=== PATIENT | female | born 1970 | race Caucasian/White ===

== ENCOUNTER → 2016-05-09 | Outpatient (CLI) | payer MEDICAID, MEDICARE ==
[2015-04-28 14:13] VITALS: BP 118/72
[~2016-05-09] MED LIST: ALPR1TAB6 PO; ATOR20TA58 PO; ERGO500012 PO; OMEP20TA63 PO; PRAZ5CAP2 PO; QUET200T4 PO
--- NOTE | 2016-05-09 15:36 | EKG ---
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
[2016-05-09 15:53] LABS: BASO % 1 % (0-3); EOS % 3 % (0-3); HEMATOCRIT 36.8 % (36.0-47.0); HEMOGLOBIN 12.2 g/dL (12.0-15.5); LYMPH # 1.9 x10^3/uL (1.0-4.8); LYMPH % 21 % (24-48); MEAN CORPUSCULAR HEMOGLOBIN 30 pg (25-35); MEAN CORPUSCULAR HGB CONC 33 g/dL (31-37); MEAN CORPUSCULAR VOLUME 90 fL (79-100); MONO % 9 % (0-9); NEUT % 67 % (31-73); PLATELET COUNT 304 x10^3/uL (140-400); RED BLOOD COUNT 4.11 x10^6/uL (3.50-5.40); RED CELL DISTRIBUTION WIDTH 12.5 % (11.5-14.5)
[2016-05-09 16:10] LABS: ALBUMIN 4.1 g/dL (3.4-5.0); ALBUMIN/GLOBULIN RATIO 1.1 (1.0-1.7); CALCIUM 9.3 mg/dL (8.5-10.1); GFR 59.2; POTASSIUM 3.7 mmol/L (3.5-5.1); TOTAL BILIRUBIN 0.4 mg/dL (0.2-1.0)
[2016-05-09 17:54] LABS: BILIRUBIN,URINE NEGATIVE (NEG); GLUCOSE,URINE NEGATIVE (NEG); NITRITE,URINE NEGATIVE (NEG); PH,URINE 5.5; PROTEIN,URINE NEGATIVE (NEG-TRACE); UROBILINOGEN,URINE 0.2 mg/dL (0.2 mg/dL)
[2016-05-09 18:24] LABS: BACTERIA,URINE FEW /HPF (0-FEW); RBC,URINE 0 /HPF (0-2); SQUAMOUS EPITHELIAL CELL,UR MOD /LPF
--- NOTE | 2016-05-10 08:41 | RAD ---
Chest, 2 views, 05/09/2016: History: Preop evaluation for hysterectomy Comparison is made to a study from 08/25/2015. The heart size and pulmonary vascularity are normal. No pulmonary infiltrates are seen. There is no evidence of pleural fluid. Minimal spurring is present in the spine. IMPRESSION: No acute cardiopulmonary abnormality is detected.
== END | disposition home or self-care (01) ==
LOC: SURGPAT 14:33
PROVIDERS: ATTEND Obstetrics & Gynecology
DX: Z01.818 Encounter for other preprocedural examination (principal); R06.09 Other forms of dyspnea
CPT/HCPCS: 36415; 71020; 80053; 81001; 85027; 93005

== ENCOUNTER 2016-05-16 05:51 | Observation (INO) | payer MEDICARE, MEDICAID ==
[~2016-05-16] VITALS: Ht 170.2 cm; Wt 79.4 kg
[2016-05-16] VITALS (8 sets, daily range): BP systolic 104–121; BP diastolic 64–74
[2016-05-16 06:20] LABS: NEG OBC UR NEG; POS OBC UR POS
[2016-05-16] MEDS ORDERED: CEFOXITIN 1GM IVPB FOR OMNI 50 ML IV ONE (06:31)
[2016-05-16] MEDS ORDERED: IV RINGERS,LACTATED 1000ML 1,000 ML IV SCH ×2 (06:41→08:12)
[2016-05-16] MEDS ORDERED: LIDOCAINE 1% 1 ML SYRINGE. ID PRN ×2 (06:45→08:15)
[2016-05-16] MEDS ORDERED: MIDAZOLAM HCL 2 MG/2 ML VIAL. IV PRN (06:45)
[2016-05-16] MEDS ORDERED: FENTANYL PF 100 MCG/2 ML VIAL. IV PRN ×3 (06:45→08:15)
[2016-05-16] MEDS ORDERED: PROPOFOL 20 ML IV ONE (06:55)
[2016-05-16] MEDS ORDERED: ONDANSETRON PF 4 MG/2 ML VIAL. ONE (06:55)
[2016-05-16] MEDS ORDERED: FAMOTIDINE 20 MG/2 ML VIAL ONE (06:55)
[2016-05-16] MEDS ORDERED: LIDOCAINE 2% 100 MG/5 ML DISP.SYRIN. ONE (06:55)
[2016-05-16] MEDS ORDERED: DEXAMETHASONE SOD PHOS 20 MG/5 ML VIAL. ONE (06:55)
[2016-05-16] MEDS ORDERED: FENTANYL PF 100 MCG/2 ML VIAL. ONE ×2 (06:56→07:49)
[2016-05-16] MEDS ORDERED: ROCURONIUM 50 MG/5 ML VIAL. ONE (06:56)
[2016-05-16] MEDS ORDERED: MIDAZOLAM HCL 2 MG/2 ML VIAL. ONE (07:01)
[2016-05-16] MEDS ORDERED: BUPIVACAINE-EPI 0.25%-1:200000 MPF 30 ML VIAL. ONE (07:19)
[2016-05-16] MEDS ORDERED: METHYLENE BLUE 1% 1 ML VIAL. ONE (07:19)
[2016-05-16] MEDS ORDERED: ESTROGENS, CONJ VAGINAL CREAM 30GM TUBE. ONE (07:20)
[2016-05-16] MEDS ORDERED: ACETAMINOPHEN INTRAVENOUS 100 ML IV ONE (07:50)
[2016-05-16] MEDS ORDERED: EPHEDRINE PF IN SALINE 50 MG/5 ML DISP.SYRIN. IV ONE (08:02)
[2016-05-16] MEDS ORDERED: PROCHLORPERAZINE 10 MG/2 ML VIAL. IV PRN (08:15)
[2016-05-16] MEDS ORDERED: ONDANSETRON PF 4 MG/2 ML VIAL. IV PRN ×2 (08:15→09:00)
[2016-05-16] MEDS ORDERED: GLYCOPYRROLATE 1 MG/5 ML VIAL. ONE (08:46)
[2016-05-16] MEDS ORDERED: NEOSTIGMINE METHYLSULFATE 5 MG/5 ML SYRINGE. ONE (08:46)
[2016-05-16] MEDS ORDERED: SEVOFLURANE 61 TO 120 MINUTES. IH ONE (08:58)
[2016-05-16] MEDS ORDERED: 0.9 % SODIUM CHLORIDE 10 ML DISP.SYRIN. IV PRN (09:00)
[2016-05-16] MEDS ORDERED: MAG HYDROX/ALUMINUM HYDROX/SMC 30 ML ORAL.SUSP PO PRN (09:00)
[2016-05-16] MEDS ORDERED: CALCIUM CARBONATE 500 MG TAB.CHEW PO PRN (09:00)
[2016-05-16] MEDS ORDERED: ZOLPIDEM 5 MG TABLET. PO PRN (09:00)
[2016-05-16] MEDS ORDERED: MAGNESIUM HYDROXIDE 2,400 MG/30 ML ORAL.SUSP. PO PRN (09:00)
[2016-05-16] MEDS ORDERED: SIMETHICONE 80 MG TAB.CHEW PO PRN (09:00)
[2016-05-16] MEDS ORDERED: DIPHENHYDRAMINE HCL 25 MG CAPSULE PO PRN (09:00)
[2016-05-16] MEDS ORDERED: OXYCODONE/APAP 5/325 TABLET. PO PRN (09:00)
[2016-05-16] MEDS ORDERED: DIPHENHYDRAMINE 50 MG/ML VIAL IV PRN (09:00)
[2016-05-16] MEDS ORDERED: LACTULOSE 20 GM/30 ML SOLUTION. PO PRN (09:00)
[2016-05-16] MEDS ORDERED: NALOXONE 0.4 MG/ML VIAL. IV PRN (09:00)
[2016-05-16] MEDS ORDERED: ALPRAZOLAM 1 MG TABLET PO PRN (09:15)
--- NOTE | 2016-05-16 09:15 | PDOC ---
BRIEF OPERATIVE NOTE Date: May 16, 2016 Pre-Op Diagnosis menorrhagia, 2 periods per month Post-Op Diagnosis same Procedure Performed LAVH/BSO Surgeon Dr. Soraida Briscoe [facility] Machine Feeder Dr. Beatriz Quintanilla Anesthesiologist see anesthesia notes Anesthesia Type: General Blood Loss 30cc IV Fluid see anesthesia records Urine Output 150cc clear via rice Specimens Obtained cervix, uterus, bilateral tubes and ovaries Findings mild left sided colon adhesions, small 2cm clear left ovarian cyst, mildly enlarged RV uterus, normal right tube and ovary Complications none Additional Remarks [id number] SORAIDA BRISCOE MD May 16, 2016 09:15
[2016-05-16] MEDS: FENTANYL PF 100 MCG/2 ML VIAL. IV PRN ×4 (09:20→10:19)
[2016-05-16] MEDS: MORPHINE SULFATE 2 MG/ML DISP.SYRIN. IV PRN ×4 (09:50→23:24)
[2016-05-16] MEDS: KETOROLAC TROMETHAMINE 30 MG/ML SYRINGE. IV PRN (10:53)
--- NOTE | 2016-05-16 15:25 | OP ---
DATE OF SURGERY: 05/16/2016 PREOPERATIVE DIAGNOSES: Menorrhagia with 2 cycles per month and dysmenorrhea. POSTOPERATIVE DIAGNOSES: Menorrhagia with 2 cycles per month and dysmenorrhea. PROCEDURES: Laparoscopic-assisted vaginal hysterectomy, bilateral salpingo-oophorectomy. SURGEON: Paulino Gutierrez MD. and Beatriz Quintanilla MD. ANESTHESIA: General. ESTIMATED BLOOD LOSS: 30 mL. URINE OUTPUT: 150 mL clear via Nicholson catheter. SPECIMEN REMOVED: Cervix, uterus, bilateral tubes and ovaries. FINDINGS: A small 2 cm functional clear cyst on the left. Normal right tube and ovary, mildly enlarged retroverted uterus, some mild adhesions of the descending colon to the left side wall. COMPLICATIONS: None. DESCRIPTION OF PROCEDURE: This patient was taken to the operating room where general anesthesia was placed. The patient was placed in dorsal lithotomy position in Ranjit stirrups. The patient's abdomen and vagina were prepped and draped in the normal sterile fashion and a Nicholson catheter had previously been inserted under sterile technique. At this point, a bivalve speculum was placed in the patient's vagina. A single tooth tenaculum was used to grasp the anterior lip of the cervix. 10 mL of 0.25% Marcaine with epinephrine was used to circumferentially inject around the cervix. This was for both hemodissection and hemostatic purposes later. At this point, the Valtchev uterine manipulator was placed through the endocervical os, locked on the single tooth tenaculum and the bivalve speculum was then removed. Top gloves were discarded and changed. Attention was then turned to the abdomen where a small infraumbilical skin incision was made with a scalpel over an existing scar from her previous laparoscopic cholecystectomy. A curved Barbara was used to dissect through the subcuticular layer to the fascia. The 5 mm Visiport was used to directly enter the abdominal cavity. Opening patient pressure was 4-5 mmHg. Carbon dioxide gas was used to then appropriately insufflate the abdominal cavity to maintain a pressure of 15 mmHg. The patient was placed in Trendelenburg position with the above findings. Right and left lower quadrant 5 mm atraumatic disposable Ethicon ports were placed under direct visualization without difficulty. Ligasure Advance was used to cauterize and cut the left round ligament. It was cauterized and cut in a stepwise fashion going down and making the bladder flap anteriorly sharply and bluntly, elevating the left tube and ovary. There was a small may be 1-2 cm clear straw-colored cyst that burst when we elevated the ovary on this side. The ureter was found low coursing beneath where we are going, staying high right on the ovary, but nowhere near the colon adhesions crossing the IP ligament, cauterizing and cutting it with the LigaSure Advance, going down and getting the uterines on that side making sure the bladder was down. This was done exactly the same on the right side first starting with the round ligament going down and further meeting that bladder flap anteriorly, elevating the right tube and ovary, again finding the ureter coursing low, staying high on the infundibulopelvic ligament, cauterizing and cutting it all with the LigaSure Advance, going down and getting the uterines on this side as well. The uterus did began blanching, the cervix was pushed in with the Valtchev, uterus was lifted up, made sure that the bladder was down and going down and staying vertical on both sides after getting the uterine inside that pedicle and going through the cardinal and broad ligaments down to the level of the uterosacrals, cauterizing and cutting with the LigaSure Advance the entire way down hugging the cervix and staying vertical to the cervix. Once this was done, all instruments were removed from the abdomen and attention was turned vaginally where the single tooth and Valtchevs were removed. A weighted speculum was placed in the patient's vagina. Thyroid Bianca clamps were placed on the anterior and posterior lips of the cervix respectively. A scalpel was used to make a circumferential incision in the cervix. An open Ray-Jean 4 x 4 was used to gently push up the anterior bladder peritoneum. The cervix was elevated and the posterior cul-de-sac was sharply entered with Zamarripa scissors. A #0 Vicryl stitch was used to secure the posterior peritoneum to the vaginal cuff here and it was tagged with a curved Barbara clamp and the needle was cut and passed off. The short weighted speculum was removed and replaced with the long weighted Anay speculum in the posterior cul-de-sac. At this point, curved Ivet clamps x 2 were placed on the patient's left uterosacral ligament. They were doubly clamped with curved Ivet, cut with curved Zamarripa scissors and suture ligated x 2 with #0 Vicryl. The second one was taken through the vaginal cuff securing the uterosacral ligaments to the vaginal cuff and cutting the needle off and tagging it with a straight Barbara clamp. This was done exactly the same on the patient starting on the left now going the right side. Curved Heaneys were used to double clamp the right uterosacral ligament and then cutting with Zamarripa scissors and suture ligating x 2 with #0 Vicryl, again taking the second one through the vaginal cuff and tagging it with a straight Barbara clamp and cutting and passing the needle off. At this point, the right angle clamp was taken through around the remaining pedicle on both sides and the vaginal LigaSure Max was used to cauterize this once the pedicle was delineated on both sides. The cervix, uterus, bilateral tubes and ovaries were delivered in total and passed off for permanent pathology. The anterior sponge was taken out of the cul-de-sac. A long Allis was used to grasp the anterior bladder peritoneum and a sponge stick was used to examine the pedicles. Once it was hemostatic, the long weighted speculum was removed and replaced with the short weighted and a full length 2-0 Vicryl was taken through the anterior bladder peritoneum, left uterosacral ligament, posterior peritoneum and right uterosacral ligament, thus closing the peritoneum in a pursestring like fashion. Once this was done, the uterosacral tags on both sides were clipped. All that remained was the posterior tag and a full length 2-0 Vicryl was taken through the anterior vaginal cuff and it was closed in a running locked fashion and tied to that posterior tag. Once this was done, a sponge stick was used to examine the cuff and it was hemostatic and intact. So, all instruments were removed and all gloves were discarded and changed. A second look from above was began. There was no bleeding. It was copiously irrigated. Tisseel was placed over the cuff. The right and left lower quadrant ports were removed under direct visualization. These two were hemostatic. Gas was released from the umbilical port. It was removed also. All three port sites were closed with 4-0 nylon at the level of the skin and injected with another total of 10 mL of 0.25% Marcaine with epinephrine. PAULINO GUTIERREZ MD DR: MARISELA/krzysztof JOB#: [id number] / [id number]
[2016-05-16] MEDS: HYDROCODONE/APAP 5/325MG TABLET. PO PRN ×2 (17:51→21:12)
[2016-05-16] MEDS ORDERED: ATORVASTATIN CALCIUM 20 MG TABLET PO SCH (21:00)
[2016-05-16] MEDS ORDERED: PRAZOSIN 1 MG CAPSULE. PO SCH (21:00)
[2016-05-16] MEDS: ALPRAZOLAM 0.5 MG TABLET PO PRN (21:04)
[2016-05-17] MEDS: HYDROCODONE/APAP 5/325MG TABLET. PO PRN ×3 (00:41→08:03)
[2016-05-17 01:10] VITALS: BP 114/68
[2016-05-17] MEDS: KETOROLAC TROMETHAMINE 30 MG/ML SYRINGE. IV PRN (04:09)
[2016-05-17] MEDS: ALPRAZOLAM 0.5 MG TABLET PO PRN (04:16)
[2016-05-17 04:30] VITALS: BP 134/70
[2016-05-17 06:21] LABS: GFR 59.2; POTASSIUM 3.7 mmol/L (3.5-5.1)
[2016-05-17] MEDS ORDERED: PANTOPRAZOLE 40 MG TABLET. PO SCH (07:30)
--- NOTE | 2016-05-17 08:42 | PDOC ---
SURGICAL PROGRESS NOTE Subjective Doing well without complaints. Tolerating regular diet, ambulating well, voiding without catheter. Wants to go home. Rare spotting with wiping in restroom Vital Signs Vital Signs Date Time Temp Pulse Resp B/P Pulse Ox O2 Delivery O2 Flow Rate FiO2 05/17/16 04:30 98.2 69 24 134/70 96 Room Air 98.2 05/17/16 00:41 8.0 I&O Intake and Output 05/17/16 07:00 Intake Total 2080 ml Output Total 955 ml Balance 1125 ml Intake Oral 330 ml IV Total 1750 ml Output Urine Total 925 ml Estimated Blood Loss 30 ml # Voids 1 PATIENT HAS A SEPULVEDA: No General: Alert, Oriented X3, Cooperative, No acute distress HEENT: Atraumatic Heart: Regular rate Abdomen: Soft, No tenderness, Other (all port sites c/d/i) Extremities: No clubbing, No cyanosis, No edema Skin: No rashes, No breakdown Neuro: Normal speech Psych/Mental Status: Mental status NL, Mood NL Labs Laboratory Tests Test 05/16/16 06:10 05/17/16 04:35 Urine Test Negative (NEG) Hematocrit 31.2% (36.0-47.0) Sodium Level 139mmol/L (136-145) Potassium Level 3.7mmol/L (3.5-5.1) Chloride Level 102mmol/L (98-107) Carbon Dioxide Level 24mmol/L (21-32) Anion Gap 13 (6-14) Blood Urea Nitrogen 14mg/dL (7-20) Creatinine 1.0mg/dL (0.6-1.0) Estimated GFR (Cockcroft-Gault) 59.2 Glucose Level 139mg/dL (70-99) Calcium Level 9.0mg/dL (8.5-10.1) Laboratory Tests Test 05/17/16 04:35 Hematocrit 31.2% (36.0-47.0) Sodium Level 139mmol/L (136-145) Potassium Level 3.7mmol/L (3.5-5.1) Chloride Level 102mmol/L (98-107) Carbon Dioxide Level 24mmol/L (21-32) Anion Gap 13 (6-14) Blood Urea Nitrogen 14mg/dL (7-20) Creatinine 1.0mg/dL (0.6-1.0) Estimated GFR (Cockcroft-Gault) 59.2 Glucose Level 139mg/dL (70-99) Calcium Level 9.0mg/dL (8.5-10.1) I have reviewed the following labs, vitals, nursing Problem List Problems Medical Problems: (1) Menorrhagia Status: Acute Assessment/Plan menorrhagia, polymenorrhea POD#1 s/p LAVH/BSO routine po care d/c to home NPV x 6 weeks light/limited activity x [address] while on narcotic pain pills [place]-- written keep scheduled one week postop call or return sooner if any questions or concerns not limited to but including pain unrelieved with pain pills, increased or unexplained vaginal bleeding or T> 100.4 Problems: PAULINO BRISCOE MD May 17, 2016 08:42
--- NOTE | 2016-05-17 08:45 | PDOC3 ---
Discharge Summary Visit Information Date of Admission: May 16, 2016 Date of Discharge: May 17, 2016 Final Diagnosis Problems Medical Problems: (1) Menorrhagia Status: Acute Brief Hospital Course Allergies Allergies Coded Allergies Type Severity Reaction Last Updated Verified codeine Adverse Reaction Intermediate Nausea and Vomiting 05/16/16 Yes Vital Signs Vital Signs Date Time Temp Pulse Resp B/P Pulse Ox O2 Delivery O2 Flow Rate FiO2 05/17/16 04:30 98.2 69 24 134/70 96 Room Air 98.2 05/17/16 00:41 8.0 Lab Results Laboratory Tests Test 05/16/16 06:10 05/17/16 04:35 Urine Test Negative (NEG) Hematocrit 31.2% (36.0-47.0) Sodium Level 139mmol/L (136-145) Potassium Level 3.7mmol/L (3.5-5.1) Chloride Level 102mmol/L (98-107) Carbon Dioxide Level 24mmol/L (21-32) Anion Gap 13 (6-14) Blood Urea Nitrogen 14mg/dL (7-20) Creatinine 1.0mg/dL (0.6-1.0) Estimated GFR (Cockcroft-Gault) 59.2 Glucose Level 139mg/dL (70-99) Calcium Level 9.0mg/dL (8.5-10.1) Laboratory Tests Test 05/17/16 04:35 Hematocrit 31.2% (36.0-47.0) Sodium Level 139mmol/L (136-145) Potassium Level 3.7mmol/L (3.5-5.1) Chloride Level 102mmol/L (98-107) Carbon Dioxide Level 24mmol/L (21-32) Anion Gap 13 (6-14) Blood Urea Nitrogen 14mg/dL (7-20) Creatinine 1.0mg/dL (0.6-1.0) Estimated GFR (Cockcroft-Gault) 59.2 Glucose Level 139mg/dL (70-99) Calcium Level 9.0mg/dL (8.5-10.1) Brief Hospital Course Ms. Hall is a 46 old [sex] who presented with [ ] Discharge Information Condition at Discharge: Improved Follow Up: Weeks Disposition/Orders: D/C to Home Scheduled Atorvastatin Calcium (Atorvastatin Calcium) 20 MG PO HS (Reported) Ergocalciferol (Vitamin D2) (Vitamin D2) 50,000 UNIT PO WEEKLY (Reported) Omeprazole Magnesium (Prilosec Otc) 20 MG PO DAILY (Reported) Prazosin Hcl (Prazosin Hcl) 5 MG PO HS (Reported) Quetiapine Fumarate (Seroquel) 200 MG PO HS (Reported) Scheduled PRN Alprazolam (Alprazolam) 1 MG PO PRN Q6HRS PRN PRN ANXIETY / AGITATION (Reported ) Patient Instructions Patient Instructions POD#1 s/p LAVH/BSO routine po care d/c to home NPV x 6 weeks light/limited activity x [address] while on narcotic pain pills [place]-- written keep scheduled one week postop call or return sooner if any questions or concerns not limited to but including pain unrelieved with pain pills, increased or unexplained vaginal bleeding or T> 100.4 PAULINO BRISCOE MD May 17, 2016 08:45
[2016-05-17 08:53] VITALS: BP 128/72
--- NOTE | 2016-05-18 14:09 | PATHOLOGY ---
PATHOLOGY REPORT * * * * * * * * FINAL DIAGNOSIS: Uterus and attached bilateral fallopian tubes and ovaries, laparoscopic-assisted vaginal hysterectomy with bilateral salpingo-oophorectomy: - Adenomyosis, uterine corpus, with mild myometrial hypertrophy (160 grams). - Nabothian cyst, uterine cervix, with overlying squamous metaplasia. - Secretory endometrium. - Bilateral fallopian tubes showing no diagnostic abnormalities. - Cystic follicles, bilateral ovaries, showing focal hemorrhage and regressive changes. - Focally hemorrhagic corpora lutea of ovaries. COMMENT: There is no evidence of malignancy. (JPM:mgr; d/t: 05/18/16) REPORT ELECTRONICALLY SIGNED BY: Mauro Pena M.D. DATE/TIME: 05/18/2016 14:08 * * * * * * * * GROSS PATHOLOGY: The specimen is received in formalin labeled "Sharmila Hall, uterus, cervix, bilateral ovaries and tubes". Received is a 160 g, 10.1 x 7.3 x 5.5 cm uterus with attached cervix and attached adnexa, weighing 12 and 13 g, left and right, respectively. The uterine serosa is pink-bain, smooth and glistening in appearance. The 1.1 cm cervical os is surrounded by pale bain, smooth to slightly disrupted ectocervical mucosa. The uterus is oriented using the peritoneal reflection and the anterior paracervical margin is inked black. The uterus is opened laterally to reveal a pale bain, corrugated endocervical canal measuring 3.0 cm in length. The endometrial cavity is triangular measuring 5.3 cm in length by 2.5 cm in width. The endometrium is pale bain, glistening in appearance and measures 0.1 cm in thickness. Serial sectioning reveals a bain-pink, trabeculated myometrium measuring up to 2.8 cm in thickness with no grossly distinct nodules or lesions. The 12 g left adnexa consists of a fimbriated fallopian tube measuring 4.9 cm in length by 0.7 cm in diameter attached to a 3.7 x 2.7 x 1.5 cm ovary. The fallopian tube appears grossly unremarkable and sectioning through the ovary reveals corpora lutea ranging in size from 0.3 to 1.8 cm and corpora albicantia ranging in size from 0.1 to 0.2 cm. There are also several cystic structures present ranging in size from 0.2 to 0.5 cm filled with blood-tinged fluid. The 13 g right adnexa consists of a fimbriated fallopian tube measuring 5.5 cm in length by up to 0.7 cm in diameter attached to a 2.8 x 2.8 x 2.1 cm ovary. The fallopian tube appears grossly unremarkable and sectioning through the ovary reveals corpora lutea ranging in size from 0.5 to 1.9 cm and corpora albicantia ranging in size from 0.1 to 0.2 cm. There is also a single unilocular cystic structure present measuring 0.4 cm filled with blood-tinged fluid. The specimen is submitted representatively as follows: A1 12:00 cervix A2 6:00 cervix A3 anterior endomyometrium A4 posterior endomyometrium A5 left adnexa A6 right adnexa. (CAA; 05/17/2016) INITIAL CPT CODE(S): A; 49835 Professional services performed [place] [address] Technical services performed by [facility] at [address] [place] [address]. SPECIMEN(S) RECEIVED: A.Uterus, cervix, bilateral ovaries and tubes CLINICAL HISTORY: Fibroids, dysmenorrhea, menorrhagia, dyspareunia PATIENT: FANNYSHARMILA /AGE: 1 1970 (Age: 46) PATIENT #: [id number] ALT CASE #: SPECIMEN COLLECTION DATE: 05/16/2016 SPECIMEN RECEIVED DATE: 05/16/2016 [facility] [place] [address] - PHONE: [phone] * * * END OF REPORT * * *
== END 2016-05-17 10:54 | disposition home or self-care (01) ==
LOC: SURG 05:51 → 3 NORTH 09:15
PROVIDERS: ADMIT Obstetrics & Gynecology; ATTEND Obstetrics & Gynecology
DX: N92.0 Excessive and frequent menstruation with regular cycle (principal); N94.6 Dysmenorrhea, unspecified; K66.0 Peritoneal adhesions (postprocedural) (postinfection); N83.202 Unspecified ovarian cyst, left side; N85.4 Malposition of uterus
CPT/HCPCS: 36415; 58552; 80048; 81025; 85014; 86850; 86900; 86901; 96374; 96375; 96376; C1769; G0378; G0379; J0131; J0694; J1100; J1885; J2250; J2270; J2405; J2704; J2710; J3010; J3490; J7030; J7120; S0028; 88307; Q9968

== ENCOUNTER → 2018-01-05 | Outpatient (CLI) | payer MEDICARE, MEDICAID ==
[~2018-01-05] MED LIST changes: -ERGO500012 PO; +ERGO500027 PO; +ESTR2TAB PO; +IOHEXOL 180 MG/ML 10 ML VIAL. ONE; +LIDOCAINE 2% PF 2ML VIAL. ONE; +OMEG1CAP66 PO; +PARO20TA3 PO; +ZOLP5TAB5 PO; +methylPREDNISolone ACETATE 40 MG/ML VIAL. ONE; +methylPREDNISolone ACETATE 80 MG/ML VIAL. ONE
--- NOTE | 2018-01-06 01:45 | PAIN ---
DATE OF SERVICE: 01/05/2018 INITIAL CONSULTATION FOR PAIN CLINIC CHIEF COMPLAINT: Neck and left upper extremity pain. HISTORY OF PRESENT ILLNESS: This is a 47-year-old female who presents with history of pain for about 1 year, not a result of any specific injury or action that she is aware of, but increasing in the base of the neck and left upper extremity, left arm, mostly posterior aspect of the triceps, biceps anteriorly as well as the anterior forearm into the hand and fingers, especially with numbness and tingling in the thumb and the first finger. The patient reports this has been getting worse with time. Again, no specific injury or action that she is aware of. Describes this as constant, throbbing, shooting, tingling with numbness in the hand, radiating, aching and cramping in sensation as well. The patient reports she has been dropping items with the left arm and feels that it fatigues very easily and is more tired than the right. The patient reports she is left handed. The patient reports it awakens her from sleep frequently all night. She is having difficulty sleeping, especially on the left side. She reports it does not affect her bowel or bladder control, but can affect her ability to walk and she feels unstable and unbalanced with her left arm with this aching and tingling and causes her to be off balance. The patient has tried naproxen as well as a steroid pack, which did not help significantly to decrease the pain. Reports her disability range 0-10, 10 being the worst, is a 7 with family and home responsibilities, recreation, social activity, occupation and sexual behavior; 9 with self-care and 9 with life support activities. The patient did have an MRI scan of the cervical spine showing C5-C6 disk space with mild generalized disk bulge, superimposed with left paracentral disk osteophyte complex, C6-C7 shows generalized disk bulge as well, mild with left paracentral focal disk protrusion resulting in mild left-sided central spinal canal stenosis without evidence of cord impingement. The patient has not tried any current physical therapies, any other stretching and strengthening exercises or other modalities at this time. PAST MEDICAL HISTORY: Significant for hypertension, dizziness. PREVIOUS SURGERY: Include cholecystectomy, hysterectomy and left bunionectomy. CURRENT MEDICATIONS: Include atorvastatin, prazosin, alprazolam, Seroquel, paroxetine, zolpidem, estradiol and fish oil. ALLERGIES: THE PATIENT IS ALLERGIC TO CODEINE. FAMILY HISTORY: Significant for heart disease. SOCIAL HISTORY: The patient does not drink alcohol, does not smoke. Does not use any illegal, illicit or recreational drugs. The patient reports she is single. Lives locally in [place], [place], is currently on disability. REVIEW OF SYSTEMS: The patient's review of systems is positive for those items mentioned in history of present illness. All systems reviewed and otherwise negative. It is complete, full and well documented on the patient's chart. PHYSICAL EXAMINATION: VITAL SIGNS: Today, the patient's blood pressure is 124/79, pulse 87, respirations 18, temperature 97.3 degrees Fahrenheit. Height is 5 feet 7 inches, weight is 171 pounds. GENERAL: The patient is awake, alert, oriented, appropriate, very pleasant demeanor. HEENT: Head is normocephalic, atraumatic. Extraocular movements are intact and symmetrical. Oral cavity, mucous membranes are moist and pink. Dentition is intact. NECK: Shows anterior throat supple without palpable lymphadenopathy noted. Swallow reflex symmetrical. CHEST: Shows normal with inspection. Breath sounds clear to auscultation bilaterally. HEART: Shows S1, S2 clear. No murmurs auscultated. ABDOMEN: Soft, nontender, nondistended. No palpable organomegaly is noted. No rebound or guarding demonstrated. BACK: Shows spine grossly in the midline. Normal appearing thoracic kyphosis and lumbar lordotic curvature. Cervical lordotic curvature is normal in curvature as well. Cervical paraspinous muscle shows symmetrical on inspection. On palpation shows some moderate tenderness, but only diffusely bilaterally without radiation. Good rotational motion is maintained in the neck with full rotation past 45 degrees right and left as well as full extension, full forward flexion without significant pain reported. There is moderate tenderness in the inferior aspect of the cervical paraspinous musculature on the left into the superior medial and lateral trapezius, but without trigger points, without radiation. Right side is nontender. The patient's upper extremities show deep tendon reflexes at 2+ in the biceps and triceps tendons. Motor exam is strong, 4/5 left churn operator strength and 5/5 on the right. Peripheral pulses are 2+ radial distribution. No peripheral edema is noted bilaterally. Shoulder shrug is strong and intact with some moderate pain with resistance on the left side without loss of strength. Abduction of the shoulder to 90 degrees is the same on the left with no loss of strength, but significant tenderness with resistance on the left side only, but without radiation to the hand. SKIN: Warm and dry, good turgor. No edema. No rashes or sores. IMPRESSION: 1. This is a 47-year-old female with about 1-year history of increasing pain at the base of the neck radiating to left upper extremity in radicular fashion. 2. MRI scan of cervical spine as noted. 3. Hypertension. PLAN: Options were discussed with the patient including conservative medical management, physical therapy, interventional techniques and she would like to pursue with interventional techniques. We discussed cervical epidural steroid injection using description as well as anatomical models to describe the procedure. Risks were then discussed including, but not limited to, bleeding, infection, possibility of epidural hematoma and subsequent neurological compromise, dural puncture, headaches, spinal cord and/or nerve damage, side effects of steroid medication and poor results regarding pain control. The patient understands and wished to proceed. The patient will return to clinic in approximately 2 weeks for followup., was counseled as to her return appointment, activity level and side effects to be aware of. DIAGNOSES: Cervical radiculopathy with cervical degenerative disk disease and cervical spinal stenosis and cervical herniated disk. PROCEDURE: Cervical epidural steroid injection, translaminar approach at C6-C7 level using C-arm fluoroscopic guidance under sterile prep and drape using local anesthetic. MEDICATION INJECTED: A total of 120 mg Depo-Medrol plus 5 mL of preservative-free normal saline and 2 mL of Isovue for contrast. CONDITION AT DISCHARGE: Stable. The patient tolerated procedure well, had no complications. TONY TINSLEY MD DR: MELVA/krzysztof JOB#: [id number] / [id number] Sofía Salmon MD
== END ==
LOC: PNCL 09:36
PROVIDERS: ATTEND Anesthesiology
DX: M50.123 Cervical disc disorder at C6-C7 level with radiculopathy (principal); M48.02 Spinal stenosis, cervical region; I10 Essential (primary) hypertension; Z98.890 Other specified postprocedural states; Z90.49 Acquired absence of other specified parts of digestive tract; Z90.710 Acquired absence of both cervix and uterus; Z88.5 Allergy status to narcotic agent
CPT/HCPCS: 62321; J1030; J1040; J2001; Q9965

== ENCOUNTER 2018-01-30 14:34 | Emergency (ER) | payer MEDICARE, MEDICAID ==
[~2018-01-30] VITALS: Ht 170.2 cm; Wt 77.1 kg
[~2018-01-30 14:34] MED LIST changes: -IOHEXOL 180 MG/ML 10 ML VIAL. ONE; -LIDOCAINE 2% PF 2ML VIAL. ONE; -methylPREDNISolone ACETATE 40 MG/ML VIAL. ONE; -methylPREDNISolone ACETATE 80 MG/ML VIAL. ONE
[2018-01-30 14:40] VITALS: BP 170/75
[2018-01-30] MEDS ORDERED: GABA-586 PO (15:10)
[2018-01-30] MEDS ORDERED: CYCL10TA2 PO (15:10)
[2018-01-30] MEDS ORDERED: DICL50TA4 PO (15:10)
--- NOTE | 2018-01-30 15:10 | PHYS DOC ---
Past Medical History Past Medical History: Anxiety, Depression, High Cholesterol, Hypertension, Other Additional Past Medical Histor: PTSD Past Surgical History: Cholecystectomy, Other Additional Past Surgical Histo: BUNION Alcohol Use: Occasionally Drug Use: None Adult General Chief Complaint Chief Complaint: Neck Pain HPI HPI Patient is a 47 year old female with history of depression, anxiety, hypertension, high cholesterol, who presents today with chronic 10 out of 10 neck pain radiating to bilateral upper extremities. Patient denies any known injury. Patient states she follows up with her own PCP as well as the pain clinic. She states she had injections in her neck 3 weeks ago which worsened the pain. Patient states she was referred to a neurologist but she has not had an appointment yet. Patient states she has history of several herniated disks to her cervical spine. Review of Systems Review of Systems Constitutional: Denies fever or chills [] Musculoskeletal: Reports chronic neck pain radiating to bilateral upper extremities. Integument: Denies rash or skin lesions [] Neurologic: Denies headache, focal weakness or sensory changes [] All other systems were reviewed and found to be within normal limits, except as documented in this note. Allergies Allergies Allergies Coded Allergies Type Severity Reaction Last Updated Verified codeine Adverse Reaction Intermediate Nausea and Vomiting 05/16/16 Yes Physical Exam Physical Exam Constitutional: Well developed, well nourished, no acute distress, non-toxic appearance. [] Neck: Normal range of motion, no tenderness, supple, no stridor. [] Skin: Warm, dry, no erythema, no rash. [] Back: No tenderness, no CVA tenderness. [] Extremities: No tenderness, no cyanosis, no clubbing, ROM intact, no edema. [] Neurologic: Alert and oriented X 3, normal motor function, normal sensory function, no focal deficits noted. [] Psychologic: Affect normal, judgement normal, mood normal. [] Current Patient Data Vital Signs Vital Signs Date Time Temp Pulse Resp B/P (MAP) Pulse Ox O2 Delivery O2 Flow Rate FiO2 01/30/18 14:40 97.9 70 14 170/75 (106) 96 Room Air 97.9 EKG EKG [] Radiology/Procedures Radiology/Procedures [] Course & Med Decision Making Course & Med Decision Making Pertinent Labs and Imaging studies reviewed. (See chart for details) This is a 47-year-old female patient presenting to the ED today with chronic neck pain with numbness and tingling to bilateral upper extremities. Patient follows up with the pain clinic as well as PCP. Patient was discharged with cyclobenzaprine, diclofenac, and gabapentin. Ice elevation encouraged. Given referrals to neurosurgery as well as neurologist. Patient states she does not want any steroids. She states she's had them and they make her gain weight Dragon Disclaimer Dragon Disclaimer This electronic medical record was generated, in whole or in part, using a voice recognition dictation system. Departure Departure Impression: Primary Impression: Chronic neck pain Disposition: HOME, SELF-CARE Condition: STABLE Referrals: NO PCP (PCP) MIGUEL WILDER MD Follow-up in 1-2 weeks OSMIN DRIVER MD Follow-up as soon as possible TONY TINSLEY MD follow up in 1-2 weeks Sofía COLLINS MD follow up as soon as possible Patient Instructions: Musculoskeletal Pain Additional Instructions: You were seen for chronic neck pain. Please follow-up with the provided neurologist, neurosurgeon, primary care doctor as well as the pain clinic. Take the prescribed medications as ordered. Scripts Gabapentin (GABAPENTIN) 300 Mg Capsule 300 MG PO TID, #30 CAP Prov: ANA ROSA WASHINGTON APRN 01/30/18 Cyclobenzaprine Hcl (CYCLOBENZAPRINE HCL) 10 Mg Tablet 1 TAB PO TID, #30 TAB Prov: ANA ROSA WASHINGTON APRN 01/30/18 Diclofenac Sodium (DICLOFENAC SODIUM) 50 Mg Tablet. 1 TAB PO BID, #30 TAB 0 Refills Prov: ANA ROSA WASHINGTON APRN 01/30/18 ANA ROSA WASHINGTON APRN Jan 30, 2018 15:10
== END 2018-01-30 15:28 | disposition home or self-care (01) ==
LOC: ER 14:34
DX: G89.29 Other chronic pain (principal); M54.2 Cervicalgia; M79.602 Pain in left arm; M79.601 Pain in right arm; E78.00 Pure hypercholesterolemia, unspecified; I10 Essential (primary) hypertension; Z88.5 Allergy status to narcotic agent
CPT/HCPCS: 99283

== ENCOUNTER → 2018-04-11 | Outpatient (CLI) | payer MEDICARE, MEDICAID ==
[~2018-04-11] MED LIST changes: +CYCL10TA2 PO; +DEXL60CA2 PO; +DICL50TA4 PO; +GABA300C18 PO
--- NOTE | 2018-04-11 14:05 | EKG ---
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
[2018-04-11 14:48] LABS: BASO % 0 % (0-3); EOS # 0.1 x10^3/uL (0.0-0.7); EOS % 1 % (0-3); HEMATOCRIT 36.9 % (36.0-47.0); HEMOGLOBIN 12.6 g/dL (12.0-15.5); LYMPH # 1.7 x10^3/uL (1.0-4.8); LYMPH % 27 % (24-48); MEAN CORPUSCULAR HEMOGLOBIN 30 pg (25-35); MEAN CORPUSCULAR HGB CONC 34 g/dL (31-37); MEAN CORPUSCULAR VOLUME 88 fL (79-100); MONO # 0.4 x10^3/uL (0.0-1.1); MONO % 6 % (0-9); NEUT # 4.2 x10^3uL (1.8-7.7); NEUT % 66 % (31-73); PLATELET COUNT 332 x10^3/uL (140-400); RED BLOOD COUNT 4.18 x10^6/uL (3.50-5.40); WHITE BLOOD COUNT 6.4 x10^3/uL (4.0-11.0)
--- NOTE | 2018-04-11 14:48 | RAD ---
EXAM: Chest, 2 views. HISTORY: Preoperative evaluation. Pain. COMPARISON: None. FINDINGS: 2 views of chest are obtained. There is no infiltrate, pleural effusion or pneumothorax. The heart is normal in size. IMPRESSION: No acute pulmonary finding. Electronically signed by: Tressa Orta MD (04/11/2018 2:43 PM) [place] [id number]
[2018-04-11 15:11] LABS: PROTHROMBIN TIME PATIENT 13.8 SEC (11.7-14.0)
[2018-04-11 15:14] LABS: ALBUMIN 3.7 g/dL (3.4-5.0); ALBUMIN/GLOBULIN RATIO 0.9 (1.0-1.7); CALCIUM 9.6 mg/dL (8.5-10.1); GFR 58.7; POTASSIUM 3.4 mmol/L (3.5-5.1); TOTAL BILIRUBIN 0.4 mg/dL (0.2-1.0); TOTAL PROTEIN 7.9 g/dL (6.4-8.2)
--- NOTE | 2018-04-12 09:47 | NUR ---
Patient was notified of positive MRSA swab. I reviewed her pre op instructions with her for mupiricin ointment bid in nostrils for 5 days, daily body wash with hibiclens. Changing clothing and linens daily. Washing hair every other day with hibiclens. Patient verbalized understanding and has the handout at home to refer to. Dr. Pacheco's office was notified.
--- NOTE | 2018-04-13 13:03 | NUR ---
FAXED PRE - OP TEST REPORTS TO 'S OFFICE FOR REVIEW AT 8248 04/13/2018 AND RECEIVED TRANSMITTAL CONFIRMATION.
== END | disposition home or self-care (01) ==
LOC: SURGPAT 13:09
PROVIDERS: ATTEND Neurological Surgery
DX: Z01.818 Encounter for other preprocedural examination (principal); M50.122 Cervical disc disorder at C5-C6 level with radiculopathy
CPT/HCPCS: 36415; 71046; 80053; 85025; 85610; 85730; 87641; 93005

== ENCOUNTER 2018-04-17 07:01 | Observation (INO) | payer MEDICARE, MEDICAID ==
[2018-04-17] VITALS (10 sets, daily range): BP systolic 139–160; BP diastolic 78–96
[~2018-04-17] VITALS: Ht 170.2 cm; Wt 75.7 kg
[~2018-04-17 07:01] MED LIST changes: +BACITRACIN 50,000 UNIT in IV NORMAL SALINE 1000ML BAG 1,000 ML IRR ONE; +LIDOCAINE 1% PF 2 ML VIAL. ID PRN; +ONDANSETRON PF 4 MG/2 ML VIAL. IV PRN; +VANCOMYCIN 1GM IVPB FOR OMNI 250 ML IV PRN; +fentaNYL PF VIAL 100 MCG/2 ML VIAL IV PRN
[2018-04-17] MEDS ORDERED: GELATIN SPONGE SIZE 100. ONE (07:15)
[2018-04-17] MEDS ORDERED: THROMBIN TOPICAL 20,000 UNIT SPRAY.SYRN KIT TP ONE (07:15)
[2018-04-17] MEDS ORDERED: BUPIVAC MPF-EPI 0.5%-1:200000 30 ML VIAL. ONE (07:15)
[2018-04-17] MEDS ORDERED: PROPOFOL 50 ML IV ONE ×2 (07:33→10:12)
[2018-04-17] MEDS ORDERED: 0.9 % SODIUM CHLORIDE 20 ML VIAL. IJ ONE (07:33)
[2018-04-17] MEDS ORDERED: LIDOCAINE 2% PF 5 ML VIAL. ONE (07:33)
[2018-04-17] MEDS ORDERED: PROPOFOL 20 ML IV ONE (07:33)
[2018-04-17] MEDS ORDERED: fentaNYL PF VIAL 100 MCG/2 ML VIAL ONE (07:33)
[2018-04-17] MEDS ORDERED: REMIFENTANIL 2 MG VIAL. IV ONE (07:33)
[2018-04-17] MEDS ORDERED: SUCCINYLCHOLINE 200 MG/10 ML VIAL. ONE (07:34)
[2018-04-17] MEDS ORDERED: ROCURONIUM 50 MG/5 ML VIAL. ONE (07:34)
[2018-04-17] MEDS: IV RINGERS,LACTATED 1000ML 1,000 ML IV SCH ×2 (07:50→12:06)
[2018-04-17] MEDS ORDERED: PHENYLEPHRINE in 0.9% NACL PF 1 MG/10 ML SYRINGE. IV ONE (09:00)
[2018-04-17] MEDS ORDERED: DEXAMETHASONE SOD PHOS 20 MG/5 ML VIAL. ONE (09:12)
[2018-04-17] MEDS ORDERED: ONDANSETRON PF 4 MG/2 ML VIAL. ONE (09:12)
[2018-04-17] MEDS ORDERED: DESFLURANE > 120 MINUTES IH ONE (09:12)
[2018-04-17] MEDS ORDERED: ePHEDrine PF IN SALINE 50 MG/5 ML DISP.SYRIN IV ONE (09:18)
[2018-04-17] MEDS ORDERED: SCOPOLAMINE 1.5MG PATCH. TD ONE ×2 (11:00)
[2018-04-17] MEDS ORDERED: MAG HYDROX/ALUMINUM HYD/SIMETH 30 ML ORAL.SUSP PO PRN (12:00)
[2018-04-17] MEDS ORDERED: MAGNESIUM HYDROXIDE 2,400 MG/30 ML ORAL.SUSP. PO PRN (12:00)
[2018-04-17] MEDS ORDERED: NALOXONE 0.4 MG/ML VIAL. IV PRN (12:00)
[2018-04-17] MEDS ORDERED: 0.9 % SODIUM CHLORIDE 10 ML DISP.SYRIN. IV PRN (12:00)
[2018-04-17] MEDS ORDERED: oxyCODONE/APAP 5/325 1 TAB TABLET PO PRN (12:00)
[2018-04-17] MEDS ORDERED: ACETAMINOPHEN 325 MG TABLET. PO PRN (12:00)
[2018-04-17] MEDS ORDERED: diphenhydrAMINE HCL 25 MG CAPSULE PO PRN (12:00)
[2018-04-17] MEDS ORDERED: CALCIUM CARBONATE 500 MG TAB.CHEW PO PRN (12:00)
[2018-04-17] MEDS ORDERED: ZOLPIDEM 5 MG TABLET. PO PRN (12:00)
[2018-04-17] MEDS ORDERED: ONDANSETRON PF 4 MG/2 ML VIAL. IV PRN (12:00)
--- NOTE | 2018-04-17 12:00 | PDOC ---
BRIEF OPERATIVE NOTE Date: Apr 17, 2018 Pre-Op Diagnosis cervical herniated disks C5-6, C6-7, cervical radiculopathy, weakness Post-Op Diagnosis same Procedure Performed anterior cervical discectomy and fusion C5-6, C6-7 with structural allograft and spinal elements anterior instrumentation Surgeon Junior Traffic Representative none Anesthesia Type: General Blood Loss 25mL Specimens Obtained disk Findings herniated disk fragments C5-6 and C6-7, neuromonitoring potentials remained at least baseline throughout the entire procedure (SSEP, MEP) Complications none apparent MACKENZIE LYON MD Apr 17, 2018 12:00
[2018-04-17] MEDS: PROCHLORPERAZINE 10 MG/2 ML VIAL. IV PRN ×2 (12:06→12:21)
[2018-04-17] MEDS: fentaNYL PF VIAL 100 MCG/2 ML VIAL IV PRN ×2 (12:07→12:21)
[2018-04-17] MEDS: MORPHINE SULFATE 4 MG/ML VIAL. IV PRN ×4 (12:08→12:52)
[2018-04-17] MEDS ORDERED: ALPRAZolam 1 MG TABLET PO PRN (12:15)
[2018-04-17] MEDS ORDERED: fentaNYL PF VIAL 100 MCG/2 ML VIAL IV PRN ×2 (12:15)
[2018-04-17] MEDS: HYDROmorphone 2 MG/ML VIAL IV PRN ×2 (12:30→13:09)
[2018-04-17] MEDS: QUEtiapine 100 MG TABLET. PO SCH ×2 (12:45→21:12)
[2018-04-17] MEDS: DICLOFENAC SODIUM 25 MG TABLET.DR PO SCH ×2 (12:45→21:11)
[2018-04-17] MEDS: oxyCODONE/APAP 5/325 1 TAB TABLET PO PRN ×2 (14:42→18:22)
[2018-04-17] MEDS: METHOCARBAMOL 750 MG TABLET PO SCH ×2 (14:42→21:11)
[2018-04-17] MEDS: ESTRADIOL 1 MG TABLET. PO SCH (14:43)
[2018-04-17] MEDS: PANTOPRAZOLE 40 MG TABLET.DR. PO SCH (16:26)
[2018-04-17] MEDS: CALCIUM CARB/VIT D3 500/200 TABLET. PO SCH (17:16)
[2018-04-17] MEDS: FERROUS SULFATE 325 MG TABLET. PO SCH (17:16)
[2018-04-17] MEDS ORDERED: ATORVASTATIN CALCIUM 20 MG TABLET PO SCH (21:00)
[2018-04-17] MEDS ORDERED: PRAZOSIN 1 MG CAPSULE. PO SCH (21:00)
[2018-04-17] MEDS ORDERED: ZOLPIDEM 5 MG TABLET. PO SCH (21:00)
[2018-04-17] MEDS: HYDROcodone/APAP 5/325MG 1 TAB TABLET PO PRN (21:10)
[2018-04-17] MEDS: SENNOSIDES/DOCUSATE 8.6/50MG TABLET. PO SCH (21:11)
[2018-04-17] MEDS: DOCUSATE SODIUM 100 MG CAPSULE. PO SCH (21:11)
[2018-04-18] MEDS: HYDROcodone/APAP 5/325MG 1 TAB TABLET PO PRN ×4 (01:08→10:24)
[2018-04-18 02:32] VITALS: BP 129/87
[2018-04-18 06:09] VITALS: BP 144/83
[2018-04-18] MEDS: PANTOPRAZOLE 40 MG TABLET.DR. PO SCH (06:41)
[2018-04-18] MEDS: DICLOFENAC SODIUM 25 MG TABLET.DR PO SCH (07:41)
[2018-04-18] MEDS: SENNOSIDES/DOCUSATE 8.6/50MG TABLET. PO SCH (07:41)
[2018-04-18] MEDS: METHOCARBAMOL 750 MG TABLET PO SCH (07:41)
[2018-04-18] MEDS: DOCUSATE SODIUM 100 MG CAPSULE. PO SCH (08:02)
[2018-04-18] MEDS: FERROUS SULFATE 325 MG TABLET. PO SCH (08:02)
[2018-04-18] MEDS: CALCIUM CARB/VIT D3 500/200 TABLET. PO SCH (08:02)
[2018-04-18] MEDS ORDERED: MULTIVITAMIN with MINERAL TABLET. PO SCH (09:00)
[2018-04-18] MEDS: ESTRADIOL 1 MG TABLET. PO SCH (09:00)
--- NOTE | 2018-04-18 10:12 | PDOC ---
PROGRESS NOTES Subjective Subjective Reports significant improvement of left arm pain and paresthesia. Some incisional pain. Tolerating po without significant problem. Objective Objective Vital Signs Date Time Temp Pulse Resp B/P (MAP) Pulse Ox O2 Delivery O2 Flow Rate FiO2 04/18/18 07:44 Room Air 04/18/18 07:43 16 04/18/18 06:41 97 04/18/18 06:09 97.2 70 144/83 (103) 97.2 04/17/18 14:45 2.0 Intake and Output 04/18/18 07:01 Intake Total 3880 ml Output Total 1525 ml Balance 2355 ml Intake Oral 1780 ml IV Total 2100 ml Output Urine Total 1500 ml Estimated Blood Loss 25 ml # Voids 6 Physical Exam Physical Exam AAOx4, NAD, speech fluent with good phonation, TORREZ, subtle asymmetric of poultry killer but left poultry killer much improved compared to pre-op, otherwise 5/5 throughout, sensation intact LT, incision c/di, flat Assessment Assessment POD 1 C5/6, C6/7 ACDF -recovering well thus far -d/c home today with standard post-op restrictions -f/u 2 weeks [phone] Comment Review of Relevant I have reviewed the following items dawna (where applicable) has been applied. Medications Current Medications Bacitracin 91872 unit/Sodium Chloride 1,000 ml @ 1,000 mls/hr 1X ONCE IRR Last administered on 04/17/18at 09:30; Start 04/17/18 at 06:00; Stop 04/17/18 at 06:59; Status DC Ondansetron HCl (Zofran) 4 mg PRN Q6HRS PRN IV NAUSEA/VOMITING; Start 04/17/18 at 07:00; Stop 04/17/18 at 13:36; Status DC Fentanyl Citrate (Fentanyl 2ml Vial) 25 mcg PRN Q5MIN PRN IV MILD PAIN; Start 04/17/18 at 07:00; Stop 04/17/18 at 13:36; Status DC Fentanyl Citrate (Fentanyl 2ml Vial) 50 mcg PRN Q5MIN PRN IV MODERATE TO SEVERE PAIN Last administered on 04/17/18at 12:21; Start 04/17/18 at 07:00; Stop 04/17/18 at 13:36; Status DC Morphine Sulfate (Morphine Sulfate) 1 mg PRN Q10MIN PRN IV SEVERE PAIN Last administered on 04/17/18at 12:52; Start 04/17/18 at 07:00; Stop 04/17/18 at 14:40 ; Status DC Ringer's Solution 1,000 ml @ 30 mls/hr Q24H IV Last administered on 04/17/18at 12:06; Start 04/17/18 at 07:00; Stop 04/17/18 at 13:36; Status DC Lidocaine HCl (Xylocaine-Mpf 1% 2ml Vial) 2 ml PRN 1X PRN ID PRIOR TO IV START ; Start 04/17/18 at 07:00; Stop 04/17/18 at 13:36; Status DC Hydromorphone HCl (Dilaudid) 0.5 mg PRN Q10MIN PRN IV SEV PAIN, Second choice Last administered on 04/17/18at 13:09; Start 04/17/18 at 07:00; Stop 04/17/18 at 13:36; Status DC Prochlorperazine Edisylate (Compazine) 5 mg PACU PRN PRN IV NAUSEA, MRX1 Last administered on 04/17/18at 12:21; Start 04/17/18 at 07:00; Stop 04/17/18 at 13:36 ; Status DC Cefazolin Sodium/ Dextrose 50 ml @ 100 mls/hr 1X PREOP PRN IV PRIOR TO PROCEDURE Last administered on 04/17/18at 09:00; Start 04/17/18 at 06:00; Stop at 18:00; Status DC Vancomycin HCl 250 ml @ 250 mls/hr 1X PREOP PRN IV PRIOR TO PROCEDURE Last administered on 04/17/18at 08:03; Start 04/17/18 at 06:00; Stop 04/17/18 at 18:00 ; Status DC Gelatin (Gelfoam Size 100) 1 each STK-MED ONCE .ROUTE ; Start 04/17/18 at 07:15 ; Stop 04/17/18 at 07:18; Status DC Bupivacaine HCl/ Epinephrine Bitart (Sensorcain-Mpf Epi 0.5%-1:[id number]) 30 ml STK -MED ONCE .ROUTE Last administered on 04/17/18at 09:30; Start 04/17/18 at 07:15 ; Stop 04/17/18 at 07:18; Status DC Thrombin 20,000 unit STK-MED ONCE TP ; Start 04/17/18 at 07:15; Stop 04/17/18 at 07:18; Status DC Lidocaine HCl (Lidocaine Pf 2% Vial) 5 ml STK-MED ONCE .ROUTE ; Start 04/17/18 at 07:33; Stop 04/17/18 at 07:35; Status DC Propofol 20 ml @ As Directed STK-MED ONCE IV ; Start 04/17/18 at 07:33; Stop at 07:36; Status DC Propofol 50 ml @ As Directed STK-MED ONCE IV ; Start 04/17/18 at 07:33; Stop at 07:36; Status DC Sodium Chloride (SODIUM CHLORIDE 20ml) 20 ml STK-MED ONCE IJ ; Start 04/17/18 at 07:33; Stop 04/17/18 at 07:36; Status DC Fentanyl Citrate (Fentanyl 2ml Vial) 100 mcg STK-MED ONCE .ROUTE ; Start at 07:33; Stop 04/17/18 at 07:36; Status DC Remifentanil HCl (Ultiva) 2 mg STK-MED ONCE IV ; Start 04/17/18 at 07:33; Stop 04/17/18 at 07:36; Status DC Succinylcholine Chloride (Anectine) 200 mg STK-MED ONCE .ROUTE ; Start 04/17/18 at 07:34; Stop 04/17/18 at 07:36; Status DC Rocuronium [place] (Zemuron) 50 mg STK-MED ONCE .ROUTE ; Start 04/17/18 at 07:34 ; Stop 04/17/18 at 07:36; Status DC Phenylephrine HCl (PHENYLEPHRINE in 0.9% NACL PF) 1 mg STK-MED ONCE IV ; Start 04/17/18 at 09:00; Stop 04/17/18 at 09:02; Status DC Dexamethasone Sodium Phosphate (Decadron) 20 mg STK-MED ONCE .ROUTE ; Start at 09:12; Stop 04/17/18 at 09:14; Status DC Ondansetron HCl (Zofran) 4 mg STK-MED ONCE .ROUTE ; Start 04/17/18 at 09:12; Stop 04/17/18 at 09:14; Status DC Desflurane (Suprane) 90 ml STK-MED ONCE IH ; Start 04/17/18 at 09:12; Stop 04/17 at 09:14; Status DC Ephedrine Sulfate (ePHEDrine PF IN SALINE SYRINGE) 50 mg STK-MED ONCE IV ; Start 04/17/18 at 09:18; Stop 04/17/18 at 09:20; Status DC Propofol 50 ml @ As Directed STK-MED ONCE IV ; Start 04/17/18 at 10:12; Stop at 10:14; Status DC Scopolamine (Transderm-Scop) 1 patch ONCE ONCE TD ; Start 04/17/18 at 11:00; Stop 04/17/18 at 11:03; Status DC Scopolamine (Transderm-Scop) 1 patch ONCE ONCE TD ; Start 04/17/18 at 11:00; Stop 04/17/18 at 11:01; Status UNV Multivitamins (Thera M Plus) 1 tab DAILY PO Last administered on 04/18/18at 08: 02; Start 04/18/18 at 09:00 Calcium/Vitamin D (Oscal D 500mg/ 200uts) 1 tab BIDWMEALS PO Last administered on 04/18/18at 08:02; Start 04/17/18 at 17:00 Ferrous Sulfate (Feosol) 325 mg BIDWMEALS PO Last administered on 04/18/18at 08: 02; Start 04/17/18 at 17:00 Acetaminophen (Tylenol) 650 mg PRN Q6HRS PRN PO MILD PAIN / TEMP; Start at 12:00 Al Hydroxide/Mg Hydroxide (Mylanta Plus Xs) 30 ml PRN Q3HRS PRN PO HEARTBURN / GAS; Start 04/17/18 at 12:00 Calcium Carbonate/ Glycine (Tums) 500 mg PRN Q3HRS PRN PO INDIGESTION; Start at 12:00 Diphenhydramine HCl (Benadryl) 25 mg PRN Q6HRS PRN PO ITCHING Last administered on 04/17/18at 21:10; Start 04/17/18 at 12:00 Zolpidem Tartrate (Ambien) 5 mg PRN QHS PRN PO INSOMNIA, MAY REPEAT IN 1HR; Start 04/17/18 at 12:00; Stop 04/17/18 at 12:38; Status DC Naloxone HCl (Narcan) 0.1 mg PRN Q2MIN PRN IV ADMIN; Start 04/17/18 at 12:00 Sodium Chloride (Normal Saline Flush) 3 ml QSHIFT PRN IV AFTER MEDS AND BLOOD DRAWS; Start 04/17/18 at 12:00 Oxycodone/ Acetaminophen (Percocet 5/325) 1 tab PRN Q4HRS PRN PO MILD PAIN, 1ST CHOICE Last administered on 04/17/18at 18:22; Start 04/17/18 at 12:00; Stop 04/17/18 at 20:43; Status DC Oxycodone/ Acetaminophen (Percocet 5/325) 2 tab PRN Q4HRS PRN PO MODERATE PAIN , SEVERE PAIN; Start 04/17/18 at 12:00; Stop 04/17/18 at 20:43; Status DC Methocarbamol (Robaxin) 750 mg TID PO Last administered on 04/18/18at 07:41; Start 04/17/18 at 14:00 Senna/Docusate Sodium (Senna Plus) 1 tab BID PO Last administered on 04/18/18at 07:41; Start 04/17/18 at 21:00 Docusate Sodium (Colace) 100 mg BID PO Last administered on 04/18/18at 08:02; Start 04/17/18 at 21:00 Magnesium Hydroxide (Milk Of Magnesia) 2,400 mg PRN Q12HR PRN PO CONSTIPATION; Start 04/17/18 at 12:00 Ondansetron HCl (Zofran) 4 mg PRN Q6HRS PRN IV NAUESA, 1ST CHOICE; Start at 12:00 Fentanyl Citrate (Fentanyl 2ml Vial) 50 mcg PRN Q1HR PRN IV SEVERE PAIN Last administered on 04/17/18at 17:22; Start 04/17/18 at 12:15 Fentanyl Citrate (Fentanyl 2ml Vial) 25 mcg PRN Q1HR PRN IV SEVERE PAIN; Start 04/17/18 at 12:15 Alprazolam (Xanax) 1 mg PRN Q6HRS PRN PO ANXIETY / AGITATION Last administered on 04/18/18at 01:08; Start 04/17/18 at 12:15 Atorvastatin Calcium (Lipitor) 20 mg HS PO Last administered on 04/17/18 21:11 ; Start 04/17/18 at 21:00 Zolpidem Tartrate (Ambien) 5 mg QHS PO Last administered on 04/17/18 21:11; Start 04/17/18 at 21:00 Pantoprazole Sodium (Protonix) 40 mg DAILYAC PO Last administered on 04/18/18 06:41; Start 04/17/18 at 16:30 Diclofenac Sodium (Voltaren) 50 mg BID PO Last administered on 04/18/18 07:41 ; Start 04/17/18 at 12:45 Estradiol (Estrace) 2 mg DAILY PO Last administered on 04/17/18 14:43; Start 04/17/18 at 13:00 Prazosin HCl (Minipress) 5 mg QHS PO Last administered on 04/17/18 21:14; Start 04/17/18 at 21:00 Quetiapine Fumarate (SEROquel) 200 mg QHS PO Last administered on 04/17/18 21: 12; Start 04/17/18 at 12:45 Acetaminophen/ Hydrocodone Bitart (Lortab 5/325) 1 tab PRN Q4HRS PRN PO MODERATE PAIN Last administered on 04/18/18 02:33; Start 04/17/18 at 20:45 Acetaminophen/ Hydrocodone Bitart (Lortab 5/325) 2 tab PRN Q4HRS PRN PO SEVERE PAIN Last administered on 04/18/18 06:41; Start 04/17/18 at 20:45 Active Scripts Active Cyclobenzaprine Hcl 10 Mg Tablet 1 Tab PO TID Diclofenac Sodium 50 Mg Tablet. 1 Tab PO BID Reported Dexilant (Dexlansoprazole) 60 Mg Cap.mp 1 Cap PO DAILY Estradiol 2 Mg Tablet 1 Tab PO DAILY Fish Oil Dr 1,000 Mg Softgel ([place]-3S/Dha/Epa/Fish Oil) 1 Each Capsule. 1 Each PO Zolpidem Tartrate 5 Mg Tablet 1 Tab PO QHS Atorvastatin Calcium 20 Mg Tablet 20 Mg PO HS Prazosin Hcl 5 Mg Capsule 5 Mg PO HS Alprazolam 1 Mg Tablet 1 Mg PO PRN Q6HRS PRN Seroquel (Quetiapine Fumarate) 200 Mg Tablet 200 Mg PO HS Vitals/I & O Vital Sign - Last 24 Hours 04/17/18 04/17/18 04/17/18 04/17/18 11:57 12:07 12:08 12:12 Temp 98.4 98.4 Pulse 102 102 Resp 20 20 22 20 B/P (MAP) 154/59 154/59 Pulse Ox 96 100 93 O2 Delivery Simple Mask Bag Valve Mask Aerosol Mask Room Air O2 Flow Rate 10 10.0 10.0 04/17/18 04/17/18 04/17/18 04/17/18 12:21 12:22 12:27 12:30 Pulse 94 Resp 20 20 B/P (MAP) 144/70 Pulse Ox 99 99 94 90 O2 Delivery Room Air Room Air Room Air O2 Flow Rate 10 20.0 04/17/18 04/17/18 04/17/18 04/17/18 12:40 12:42 12:52 12:57 Pulse 86 82 Resp 20 B/P (MAP) 141/71 146/77 Pulse Ox 96 96 96 O2 Delivery Nasal Cannula Nasal Cannula Nasal Cannula O2 Flow Rate 2.0 2 2.0 2 04/17/18 04/17/18 04/17/18 04/17/18 13:09 13:12 13:15 13:30 Temp 98.0 97.7 98.0 97.7 Pulse 76 83 Resp 20 20 16 B/P (MAP) 140/70 139/84 (102) Pulse Ox 99 96 100 O2 Delivery Room Air Nasal Cannula Nasal Cannula Nasal Cannula O2 Flow Rate 2 2 2.0 04/17/18 04/17/18 04/17/18 04/17/18 13:35 13:45 14:00 14:15 Pulse 87 81 74 Resp 18 B/P (MAP) 146/82 (103) 142/78 (99) 155/92 (113) Pulse Ox 90 93 95 O2 Delivery Nasal Cannula Nasal Cannula Nasal Cannula Nasal Cannula O2 Flow Rate 2.0 2.0 2.0 04/17/18 04/17/18 04/17/18 04/17/18 14:42 14:45 15:15 16:20 Pulse 68 80 88 B/P (MAP) 158/88 (111) 159/88 (111) 159/95 (116) Pulse Ox 94 96 92 94 O2 Delivery Nasal Cannula Nasal Cannula Room Air Room Air O2 Flow Rate 2.0 2.0 04/17/18 04/17/18 04/17/18 04/17/18 17:20 17:22 18:00 18:22 Pulse 78 Resp 18 B/P (MAP) 156/96 (116) Pulse Ox 95 O2 Delivery Room Air Room Air Room Air Room Air 04/17/18 04/17/18 04/17/18 04/17/18 19:01 19:25 19:45 21:10 Temp 98.1 98.1 Pulse 76 Resp 16 18 18 B/P (MAP) 160/96 (117) Pulse Ox 95 95 95 O2 Delivery Room Air Room Air Room Air Room Air 04/17/18 04/17/18 04/17/18 04/18/18 21:14 22:10 22:30 01:08 Temp 97.8 97.8 Pulse 74 79 Resp 18 18 18 B/P (MAP) 148/93 140/87 (104) Pulse Ox 96 96 O2 Delivery Room Air Room Air 04/18/18 04/18/18 04/18/18 04/18/18 02:15 02:32 02:33 03:35 Temp 97.4 97.4 Pulse 72 Resp 18 18 B/P (MAP) 129/87 (101) Pulse Ox 96 96 96 O2 Delivery Room Air Room Air Room Air 04/18/18 04/18/18 04/18/18 04/18/18 06:09 06:41 07:43 07:44 Temp 97.2 97.2 Pulse 70 Resp 18 18 16 B/P (MAP) 144/83 (103) Pulse Ox 97 97 O2 Delivery Room Air Room Air Room Air Intake and Output 04/17/18 04/17/18 04/18/18 15:01 23:01 07:01 Intake Total 2100 ml 780 ml 1000 ml Output Total 225 ml 1300 ml Balance 1875 ml -520 ml 1000 ml MACKENZIE LYON MD Apr 18, 2018 10:12
--- NOTE | 2018-04-18 16:10 | PATHOLOGY ---
[facility] Accession Number: [id number] . 01 Material submitted: . DISC . 01 Clinical history: . Herniated disc . 02 Diagnosis: Segments of fibrocartilaginous tissue and bone, cervical disc: - Degenerative changes of fibrocartilaginous tissue. (JPM:pete; 04/18/2018) QMS/04/18/2018 . 02 Comment: There is no evidence of an acute inflammatory process or malignancy. . 02 Electronically signed: . Mauro Pena MD, Pathologist NPI- [id number] . 01 Gross description: . The specimen is received in formalin, labeled "Isabel, Sharmila, disc" and consists of multiple fragments of fibrous pink-white tissue and bone measuring 4.3 x 2.8 x 0.5 cm in aggregate. A appeals representative portion is submitted in A1 following decalcification. (SDY; 04/17/2018) SYU/SYU . 02 Pathologist provided ICD-10: M50.30 . 02 CPT . 527816, 116208 Specimen Comment: A courtesy copy of this report has been sent to Specimen Comment: [phone]. Specimen Comment: Report sent to Performed at: 01 [facility] [address], [place], [place] [id number] MD Fabrice Valentin MD Phone: [phone] Performed at: 02 [facility] [address] [place], [place] [id number] MD Mauro Pena MD Phone: [phone]
--- NOTE | 2018-04-19 11:55 | OP ---
DATE OF SURGERY: 04/17/2018 PREOPERATIVE DIAGNOSES: Herniated cervical disks at cervical 5-6 and cervical 6-7 as well as cervical radiculopathy and weakness. SURGEON: Lalo Lyon MD MONOGRAM AND LETTER PASTER: None. PROCEDURE: Anterior cervical discectomy and fusion of cervical 5-6 and cervical 6-7 utilizing structural allograft with autograft with allograft fusion construct in the center of the structural allograft, also with anterior instrumentation at cervical 5-6 and cervical 6-7. Intraoperative neuro monitoring with somatosensory and motor evoked potentials was utilized. ANESTHESIA: General. COMPLICATIONS: None intraprocedurally. INDICATIONS FOR THE PROCEDURE: The patient is a pleasant 48-year-old female who presented with left upper extremity radiculopathy and weakness localized to disk herniations at cervical 5-6 and cervical 6-7. Please refer to the patient chart for additional details. DESCRIPTION OF PROCEDURE: After informed consent was obtained, the patient was brought into the operating room. She was placed under general anesthesia. She was placed in the supine position with a shoulder bump under the shoulders with the head in very slight extension. Vancomycin was utilized for prophylactic antibiotic. Fluoroscopy was utilized to localize an appropriate incision location centered over the region of cervical 6, which would be the center of the construct. The anterior neck was prepped and draped in the usual sterile fashion. Horizontal incision of approximately 2.5 cm was made centered over the fluoroscopically localized region of the anterior neck. Metzenbaum scissors were utilized to bluntly dissect the underlying soft tissues. The platysma was sharply divided in the plane of the incision and blunt dissection techniques were utilized to develop a plane between the trachea/ esophagus medially and the carotid sheath laterally to approach the anterior cervical spine. The prevertebral fascia was taken down with a Kittner. Longus colli muscles were gently cauterized for placement of the self-retaining retractors. Level was localized with fluoroscopy prior to the initiation of decompression. Distraction pins were instituted at cervical 5 and cervical 6 and annulotomy was performed at cervical 5-6 with an 11 blade scalpel. Discectomy was performed with pituitary and Kerrison rongeurs. The anterior inferior osteophyte of cervical 5 was taken down with a Kerrison rongeur and utilized as autograft substrate with the structural allografts. Once discectomy was complete, the posterior longitudinal ligament was divided with Kerrison rongeur and herniated disk material in the left lateral recess was gently teased posteriorly into the disk space and removed with pituitary rongeur. Once this was complete, structural allograft filled with autograft taken from the same incision was prepared. This was placed in the disk space at cervical 5-6 and tamped into the appropriate position without problem. Distraction was removed. The distraction pin was removed from cervical 5 and placed in cervical 7 and distraction was instituted across this region. An annulotomy was performed at cervical 6-7 with an 11 blade scalpel and discectomy was performed with pituitary and Kerrison rongeurs. The anterior inferior osteophyte of cervical 6 was taken down with Kerrison rongeur and utilized for autograft substrate within the structural allograft substrate. The posterior longitudinal ligament was taken down with Kerrison rongeur and herniated disk material in the left lateral recess was gently teased posteriorly into the disk space with a blunt nerve hook and removed with pituitary rongeur. A structural allograft filled with autograft as well as allograft substrate was placed into the disk space and gently tamped into position. Distraction was removed and the distraction pins were removed. A [employer] anterior cervical plate of an appropriate size was instituted anteriorly across the cervical 5, 6 and 7 region with two screws placed in cervical 5, two in cervical 6 and two in cervical 7. All 6 screws had good purchase and these were tightened and secured according to the court bailiff or sheriff's specification. Once the construct was complete, the position was verified with fluoroscopy after the construct was noted to be radiographically adequate. The wound was generously irrigated with antibiotic irrigation. Pristine hemostasis was achieved with FloSeal, cottonoids and some irrigation and some minimal use of bipolar electrocautery. It was also noted that motor and somatosensory evoked potentials remained at least baseline throughout the entire procedure. The platysma was reapproximated with 3-0 Vicryl in a simple interrupted fashion. Subcutaneous tissues were reapproximated with 3-0 Vicryl in interrupted inverted fashion and the skin was reapproximated with 4-0 Vicryl in a running subcuticular fashion. Mastisol and Steri-Strips were applied and the wound was dressed with Telfa and Tegaderm. At the end of the procedure, all needle and sponge counts correct x 2. The patient was extubated in the operating room and taken to recovery in stable condition. There were no intraprocedural complications apparent. Neuro monitoring remained at least baseline throughout the entire procedure. LALO LYON MD DR: IVÁN/krzysztof JOB#: [id number] / [id number] CHRIS
== END 2018-04-18 10:50 | disposition home or self-care (01) ==
LOC: SURG 07:01 → 4 SOUTHEST 12:42
PROVIDERS: ADMIT Neurological Surgery; ATTEND Neurological Surgery
PROC: 0RB30ZZ Excision of Cervical Vertebral Disc, Open Approach (ICD-10-PCS; 2018-04-17)
PROC: 4A11X4G Monitoring of Peripheral Nervous Electrical Activity, Intraoperative, External Approach (ICD-10-PCS; 2018-04-17)
PROC: 0RG2070 Fusion of 2 or more Cervical Vertebral Joints with Autologous Tissue Substitute, Anterior Approach, Anterior Column, Open Approach (ICD-10-PCS; principal; 2018-04-17 08:30)
DX: M54.12 Radiculopathy, cervical region (principal); F41.9 Anxiety disorder, unspecified; E78.5 Hyperlipidemia, unspecified; M54.2 Cervicalgia; Z90.710 Acquired absence of both cervix and uterus; R53.1 Weakness; M50.123 Cervical disc disorder at C6-C7 level with radiculopathy; Z79.899 Other long term (current) drug therapy
CPT/HCPCS: 20931; 22551; 22552; 22846; 76000; 88304; 88311; 96374; A7015; C1713; G0378; G0379; J0330; J0696; J0780; J1100; J1170; J2001; J2270; J2370; J2405; J2704; J3010; J3370; J3490; J7030; J7120; Q0163; C1776

== ENCOUNTER → 2018-05-24 | Outpatient (CLI) | payer MEDICARE, MEDICAID ==
[~2018-05-24] MED LIST changes: -BACITRACIN 50,000 UNIT in IV NORMAL SALINE 1000ML BAG 1,000 ML IRR ONE; -LIDOCAINE 1% PF 2 ML VIAL. ID PRN; -ONDANSETRON PF 4 MG/2 ML VIAL. IV PRN; -VANCOMYCIN 1GM IVPB FOR OMNI 250 ML IV PRN; -fentaNYL PF VIAL 100 MCG/2 ML VIAL IV PRN
--- NOTE | 2018-05-24 12:59 | RAD ---
Cervical spine, 2 views, 05/24/2018: HISTORY: Postop anterior cervical discectomy and fusion Comparison is made to a study from 11/22/2017. A surgical plate has been placed anteriorly attached to the C5, C6 and C7 vertebral bodies via 2 screws at each level. There are radiopaque disc spacers at the C5-6 and C6-7 disc levels. Vertebral body alignment appears anatomic. The upper cervical disc spaces are well-maintained. There are mild degenerative changes involving scattered facet joints. No fracture or subluxation is evident. IMPRESSION: Satisfactory alignment status post anterior spinal fusion and instrumentation from C5 through C7. Electronically signed by: Supa Busch MD (05/24/2018 12:56 PM) [facility]
== END | disposition home or self-care (01) ==
LOC: RAD 10:04
PROVIDERS: ATTEND Neurological Surgery
DX: M43.22 Fusion of spine, cervical region (principal); Z98.1 Arthrodesis status
CPT/HCPCS: 72040

== ENCOUNTER → 2018-07-04 | Outpatient (CLI) | payer MEDICARE, MEDICAID ==
--- NOTE | 2018-07-04 10:17 | RAD ---
EXAM: Cervical spine, 2 views. HISTORY: Fusion COMPARISON: 05/24/2018 FINDINGS: 2 views of the cervical spine are obtained. There is instrumented anterior spinal fusion and interbody fusion at C5-C7. There is no listhesis. The vertebral bodies are normal in height and the nonfused disc spaces are preserved. IMPRESSION: Instrumented anterior spinal fusion and interbody fusion at C5-C7. No acute osseous finding. Electronically signed by: Tressa Orta MD (07/04/2018 10:14 AM) [facility]
== END | disposition home or self-care (01) ==
LOC: RAD 09:47
PROVIDERS: ATTEND Neurological Surgery
DX: M43.22 Fusion of spine, cervical region (principal)
CPT/HCPCS: 72040

== ENCOUNTER → 2019-05-15 | Outpatient (CLI) | payer MEDICARE, MEDICAID ==
[~2019-05-15] MED LIST changes: +REGADENOSON 0.4 MG/5 ML DISP.SYRIN. IV ONE
--- NOTE | 2019-05-15 13:21 | RAD ---
MR#: [id number] Date of Study: 05/15/2019 Ordering Physician: DADA ROBIN, Referring Physician: UMESH MCKOY Tech: TIEN Finley APPROVED REPORT Test Type: Pharmacological Stress Nurse/Tech: Celi Mondragon RN Test Indications: chest pain Cardiac History: HTN, x-smoker Medications: See Electronic Medical Record Medical History: See Electronic Medical Record Resting ECG: SR Resting Heart Rate: 59 bpm Resting Blood Pressure: 125/65mmHg Pretest Chest Pain: None Nurse/Tech Notes lungs CTA, S1S2 Consent: The procedure was explained to the patient in lay terms. Informed consent was witnessed. Toño eout was entered into [employer]. History and Stress Test performed by SUE Sow, CECIL (R) (N) Pharm. Details Pharmacologic stress testing was performed using 0.4mg per 5ml of regadenoson given intravenously ove r 7-10 seconds. Stress Symptoms Nausea POST EXERCISE Reason for Termination: Infusion complete Max HR: 113 bpm Max Blood Pressure: 128/67mmHg Blood Pressure response to exercise: Normal blood pressure response during stress. Heart Rate response to exercise: normal response Chest Pain: No. Arrhythmia: No. ST Change: No. INTERPRETATION Stress EKG Conclusion: Baseline EKG showed sinus rhythm. No ischemic changes at peak stress. No arr hythmias. Imaging Protocol IMAGE PROTOCOL: Rest Tc-99m/stress Tc-99m 1 day Rest: Stress: Viability: Radiopharm.Tc99m PdsdptvgkPl03r Sestamibi Uwtb87hIg 33mCi Duration 15min. 13min. Img Date 05/15/2019 05/15/2019 Inj-Img Krcl54zcj. 60min. Rest Admin Site:IV - Right AntecubitalAdministrator:TIEN Finley Stress Admin Site: IV - Right AntecubitalAdministrator: SUE Sow, AMOST (R)(N) STRESS DATA End Diast. Vol.109.0mlLVEDV index BSA59.0ml End Syst. Vol.39.0mlLVESV index BSA21.0ml Myocardial Dldn571.0gEject. Gsrkfkmm45.0% Stress Scores Regional WT1.00Summed WT7.00 Regional WM0.00Summed WM4.00 Study quality was good. Left Ventricular size was Normal at Rest and Stress. Lung uptake was . Left Ventricular ejection fraction is 64%. The rest and stress images show normal perfusion, normal contraction and thickening. LV Perf. Quant 17 Seg. SSS0.00 17 Seg. SRS1.00 17 Seg. SDS0.00 Stress Defect Extent (% LAD)0.00Rest Defect Extent (% LAD)0.00Rev. Defect Extent (% LAD)0.00 Stress Defect Extent (% LCX) 0.00Rest Defect Extent (% LCX)0.00Rev. Defect Extent (% LCX)0.00 Stress Defect Extent (% RCA)0.00Rest Defect Extent (% RCA)0.00Rev. Defect Extent (% RCA)0.00 Stress Defect Extent (% LALITA)0.00Rest Defect Extent (% LALITA)0.00Rev. Defect Extent (% LALITA)0.00 Conclusion 1. Regadenoson cardioisotope stress test did not show any evidence of ischemia or infarct. 2. Normal left ventricular systolic function with ejection fraction calculated at 64%. 3. Low risk for cardiac events. Signed by : Long Blackman, Electronically Approved : 05/15/2019 12:28:57
--- NOTE | 2019-05-15 13:21 | CARD ---
MR#: [id number] Date of Study: 05/15/2019 Ordering Physician: DADA ROBIN, Referring Physician: DADA ROBIN, Tech: Asha Dillon [facility] APPROVED REPORT EXAM: Two-dimensional and M-mode echocardiogram with Doppler and color Doppler. Other Information Quality : GoodHR: 60bpm Rhythm : NSR INDICATION Murmur RISK FACTORS Hypertension Hyperlipidemia 2D DIMENSIONS RVDd2.9 (2.9-3.5cm)IVSd1.0 (0.7-1.1cm) Aortic Root(2D)2.8 (2.0-3.7cm)LVDd4.6 (3.9-5.9cm) LVOT Diameter2.1 (1.8-2.4cm)PWd1.0 (0.7-1.1cm) LVDs3.0 (2.5-4.0cm)FS (%) 35.0 % SV61.1 mlLVEF(%)64.3 (>50%) Aortic Valve AoV Peak Brendan.119.5cm/[place] Peak GR.5.7mmHg LVOT Peak Brendan.76.0cm/sAVA (VMAX)2.28cm2 Mitral Valve MV E Qlserdew463.4cm/sMV DECEL REOR972cu MV A Gytrptvq43.5cm/sE/A Ratio1.3 MV A Gxsddnqa626lz Pulmonary Valve PV Peak Eyyfifcl74.3cm/s Tricuspid Valve TR P. Hihrvdoq838et/sRAP HUFAZQVL4ezNi TR Peak Gr.77ucCpGBDY96fkVo Pulmonary Vein S1 Xcrflhit95.9cm/sD2 Flzqrznk86.3cm/s PVa tyymagoa89cxly LEFT VENTRICLE The left ventricle is normal size. There is normal left ventricular wall thickness. The left ventricu lar systolic function is normal and the ejection fraction is within normal range. The Ejection Fracti on is 60-65%. There is normal LV segmental wall motion. The left ventricular diastolic function and f illing is normal for age. There is no ventricular septal defect visualized. RIGHT VENTRICLE The right ventricle is normal size. There is normal right ventricular wall thickness. The right ventr icular systolic function is normal. ATRIA The left atrium size is normal. The right atrium size is normal. The interatrial septum is intact wit h no evidence for an atrial septal defect or patent foramen ovale as noted on 2-D or Doppler imaging. AORTIC VALVE The aortic valve is normal in structure and function. Doppler and Color Flow revealed no significant aortic regurgitation. There is no significant aortic valvular stenosis. MITRAL VALVE The mitral valve is normal in structure and function. There is no evidence of mitral valve prolapse. There is no mitral valve stenosis. Doppler and Color-flow revealed trace to mild mitral regurgitation . TRICUSPID VALVE The tricuspid valve is normal in structure and function. Doppler and Color Flow revealed trace tricus pid regurgitation. PAP is estimated at 15 mmHg. There is no tricuspid valve stenosis. PULMONIC VALVE The pulmonary valve is normal in structure and function. Doppler and Color Flow revealed no pulmonic valvular regurgitation. There is no pulmonic valvular stenosis. GREAT VESSELS The aortic root is normal in size. The ascending aorta is normal in size. The pulmonary artery is nor mal. The IVC is normal in size and collapses >50% with inspiration. PERICARDIAL EFFUSION There is no pleural effusion. There is no evidence of significant pericardial effusion. Critical Notification Critical Value: No <Conclusion> The left ventricular systolic function is normal and the ejection fraction is within normal range. Th e Ejection Fraction is 60-65%. There is normal LV segmental wall motion. Signed by : Venkat Arcos, Electronically Approved : 05/15/2019 08:59:13
== END | disposition home or self-care (01) ==
LOC: ECHO 07:24
PROVIDERS: ATTEND Internal Medicine Cardiovascular Disease
DX: I34.0 Nonrheumatic mitral (valve) insufficiency (principal); I10 Essential (primary) hypertension; Z87.891 Personal history of nicotine dependence
CPT/HCPCS: 78452; 93017; 93306; A9500; J2785

== ENCOUNTER → 2021-03-02 | Outpatient (CLI) | payer MEDICARE, MEDICAID ==
[~2021-03-02] MED LIST changes: +ACYC-12 PO; +CYCL10TA19 PO; -CYCL10TA2 PO; +ERGO500089 PO; -ESTR2TAB PO; +ESTR2TAB3 PO; +IOHEXOL 180 MG/ML 10 ML VIAL. ONE; +LISI10TA16 PO; +MELA10TA PO; -REGADENOSON 0.4 MG/5 ML DISP.SYRIN. IV ONE; +methylPREDNISolone ACETATE 40 MG/ML VIAL. ONE; +methylPREDNISolone ACETATE 80 MG/ML VIAL. ONE; +potassium
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
--- NOTE | 2021-03-02 12:55 | PDOC4 ---
Procedure Note: ICD 10 Code: ICD 10 Code: M54.16 M51.36 M4 8.06 Procedure Note: Patient was consented for lumbar epidural steroid injection with fluoroscopic guidance. Risks were discussed including but not limited to: Bleeding, infection, possibility of epidural hematoma and subsequent neurological compromise, dural puncture, headaches, spinal cord and/or nerve damage, side effects of steroid medication, and poor results regarding pain control. Patient understands and wished to proceed. Procedure is lumbar epidural steroid injection under local anesthetic using guille rile prep and drape at the L4-5 level using C-arm fluoroscopic guidance in both AP and lateral views medications injected is 120 mg Depo-Medrol +10mL preservative-free normal saline and 2 mL contrast- condition at discharge is stable patient tolerated procedure well had no complications. TONY TINSLEY MD Mar 02, 2021 12:55
== END | disposition home or self-care (01) ==
LOC: PNCL 11:19
PROVIDERS: ATTEND Anesthesiology
DX: M51.16 Intervertebral disc disorders with radiculopathy, lumbar region (principal); M48.061 Spinal stenosis, lumbar region without neurogenic claudication; E78.00 Pure hypercholesterolemia, unspecified; K21.9 Gastro-esophageal reflux disease without esophagitis; F41.9 Anxiety disorder, unspecified; F32.9 Major depressive disorder, single episode, unspecified; Z90.710 Acquired absence of both cervix and uterus; Z98.890 Other specified postprocedural states; Z79.899 Other long term (current) drug therapy; Z90.49 Acquired absence of other specified parts of digestive tract; Z87.891 Personal history of nicotine dependence; Z72.89 Other problems related to lifestyle; Z88.5 Allergy status to narcotic agent
CPT/HCPCS: 62323; J1030; J1040; Q9965

== ENCOUNTER → 2021-03-16 | Outpatient (CLI) | payer MEDICARE, MEDICAID ==
--- NOTE | 2021-03-16 11:46 | PDOC ---
Progress Note - Pain Clinic Date of Service: DOS: DATE: 03/16/21 TIME: 11:43 Diagnosis: Dx: Lumbar radiculopathy with lumbar degenerative disease and lumbar spinal stenosis History or Present Illness: HPI: 50-year-old female returns for follow-up status post lumbar epidural stimulation x1. Patient reports about 40% improvement over the last few weeks with the pain returning now in the low back and the right lower extremity patient reports in the posterior gluteus lateral thigh anterior thigh anteromedial thigh medial low er leg to the foot on the right side more than the left patient reports aching sharp in the back tight and shooting the leg tingling and burning in the leg as well as constant can be severe and unbearable patient reports is an 8 on scale 10 is worst average and a 7 on its least of the past week and is a 7 today. Patient reports that she is doing much better with distance walking doing household activities try with greater ease and comfort now the pain is beginning to return fairly significantly. Patient reports no bowel or bladder incontinence and no loss of function but significant fatigability of the right lower extremity. Patient reports occasional pain on the left side which is new for her but only rarely and usually just when getting up from a seated position dissipates after walking or standing for 4 to 5 minutes. Physical Exam: VS: Blood pressure is 112/69 pulse 72 respirations 18 temperature 97.3 F height is 5 feet 7 inches weight is 143 pounds PE: PHYSICAL EXAMINATION: GENERAL: The patient is awake, alert, oriented, appropriate, very pleasant in demeanor HEENT: Shows normocephalic, atraumatic. Extraocular movements are intact and symmetrical. Oral cavity: Mucous membranes moist and pink. Dentition is intact. NECK: Shows anterior throat supple without palpable lymphadenopathy noted. Swallow reflex symmetrical. CHEST: Shows normal on inspection. Breath sounds are clear bilaterally. HEART: Shows S1, S2 clear. No murmurs auscultated. ABDOMEN: Soft, nontender, nondistended. No palpable organomegaly is noted. BACK: Shows spine grossly in the midline. Normal-appearing cervical lordotic curvature. There is slightly increased thoracic kyphosis, some minor flattening of the lumbar lordotic curvature. Lumbar paraspinous muscles show symmetrical on inspection, on palpation shows some moderate tenderness diffusely throughout the upper, middle and lower distribution of the paraspinous muscles without specific trigger points, without radiation of pain. The patient has good rotational motion of the lumbar spine, both laterally as well as extension and flexion without significant difficulty. EXTREMITIES: Lower extremities show deep tendon reflexes 2+ in the patellar and tendo calcaneus tendons. Motor exam is 4 on a scale of 5 with right dorsiflexion, extension, quadriceps and hamstring flexion and 5/5 on the left. Peripheral pulses are 1+ posterior tibial. No peripheral edema is noted bilaterally. Lower extremities are warm and dry to touch, equal in color and appearance. SKIN: Shows warm and dry, good turgor. No edema. No sores, rashes or bruising throughout. Procedure: Procedure: Options were discussed with patient. Patient chart reviews her current medicat ion regimen updated current review of systems updated today as well. We will proceed with a lumbar epidural steroid injection today with fluoroscopic guidance. Risks were discussed including but not limited to: Bleeding, infection, possibility of epidural hematoma and subsequent neurological compromise, dural puncture, headaches, spinal cord and/or nerve damage, side effects of steroid medication, and poor results regarding pain control. Patient understands and wished to proceed. Patient will return to the clinic in approximate 2 weeks for follow-up, was counseled as to return appointment, activity level, and side effect to be aware of. Medication Injected: Med Injected: Procedure is lumbar epidural steroid injection under local anesthetic using sterile prep and drape at the L4-5 level using C-arm fluoroscopic guidance in both AP and lateral views medications injected is 120 mg Depo-Medrol +10mL preservative-free normal saline and 2 mL contrast- condition at discharge is s table patient tolerated procedure well had no complications. Condition at Discharge: Condition at Discharge: Condition at discharge is stable, patient tolerated the procedure well and had no complications. TONY TINSLEY MD Mar 16, 2021 11:46
--- NOTE | 2021-03-16 11:47 | PDOC4 ---
Procedure Note: ICD 10 Code: ICD 10 Code: M54.16 M five 1.36 M4 8.06 Procedure Note: Patient was consented for lumbar epidural steroid injection with fluoroscopic guidance. Risks were discussed including but not limited to: Bleeding, infection, possibility of epidural hematoma and subsequent neurological compromise, dural puncture, headaches, spinal cord and/or nerve damage, side effects of steroid medication, and poor results regarding pain control. Patient understands and wished to proceed. Procedure is lumbar epidural steroid injection under local anesthetic using sterile prep and drape at the L4-5 level using C-arm fluoroscopic guidance in both AP and lateral views medications injected is 120 mg Depo-Medrol +10mL preservative-free normal saline and 2 mL contrast- condition at discharge is stable patient tolerated procedure well had no complications. TONY TINSLEY MD Mar 16, 2021 11:47
== END | disposition home or self-care (01) ==
LOC: PNCL 10:52
PROVIDERS: ATTEND Anesthesiology
DX: M51.16 Intervertebral disc disorders with radiculopathy, lumbar region (principal); M48.061 Spinal stenosis, lumbar region without neurogenic claudication; E78.00 Pure hypercholesterolemia, unspecified; K21.9 Gastro-esophageal reflux disease without esophagitis; F41.9 Anxiety disorder, unspecified; F32.9 Major depressive disorder, single episode, unspecified; Z87.891 Personal history of nicotine dependence; Z90.49 Acquired absence of other specified parts of digestive tract; Z90.710 Acquired absence of both cervix and uterus; Z98.890 Other specified postprocedural states; Z72.89 Other problems related to lifestyle; Z88.5 Allergy status to narcotic agent; Z88.8 Allergy status to other drugs, medicaments and biological substances
CPT/HCPCS: 62323; J1030; J1040; Q9965

== ENCOUNTER → 2021-03-30 | Outpatient (CLI) | payer OTHER, MEDICARE, MEDICAID ==
--- NOTE | 2021-03-30 11:46 | PDOC ---
Progress Note - Pain Clinic Date of Service: DOS: DATE: 03/30/21 TIME: 11:41 Diagnosis: Dx: Lumbar radiculopathy with lumbar degenerative disease and lumbar spinal stenosis History or Present Illness: HPI: 50-year-old female returns for follow-up status post lumbar epidural steroid injection last seen March 16, 2021, patient did well initially but after few days the pain began to return patient reports the first 2 to 3 days much better about 50% improved but the pain returning now into the lower back and right lower extremity posterior gluteus lateral thigh anterior thigh medial thigh medial lower leg lateral lower leg into the foot on the right side patient reports aching sharp tight shooting tingling cramping stabbing can be constant unbearable patient reports its on and off in intensity worse with walking standing better with sitting or laying down initially she was done but do much better with distance walking doing household activities and ability to travel with greater ease and comfort but pain returned fairly quickly after about a week or so following the injection. Patient reports no bowel or bladder incontinence but still significant fatigability in the right leg no motor loss. Physical Exam: VS: Blood pressure is 121/71 pulse 77 respirations are 18 temperature 97.3 F weight is 147 pounds PE: PHYSICAL EXAMINATION: GENERAL: The patient is awake, alert, oriented, appropriate, very pleasant in demeanor HEENT: Shows normocephalic, atraumatic. Extraocular movements are intact and symmetrical. Oral cavity: Mucous membranes moist and pink. Dentition is intact. NECK: Shows anterior throat supple without palpable lymphadenopathy noted. Swallow reflex symmetrical. CHEST: Shows normal on inspection. Breath sounds are clear bilaterally. HEART: Shows S1, S2 clear. No murmurs auscultated. ABDOMEN: Soft, nontender, nondistended. No palpable organomegaly is noted. BACK: Shows spine grossly in the midline. Normal-appearing cervical lordotic curvature. There is some increased thoracic kyphosis, some flattening of the lumbar lordotic curvature. Lumbar paraspinous muscles show symmetrical on inspection, on palpation shows some moderate tenderness diffusely throughout the upper, middle and lower distribution of the paraspinous muscles without specific trigger points, without radiation of pain. The patient has good rotational motion of the lumbar spine, both laterally as well as extension and flexion without significant difficulty. EXTREMITIES: Lower extremities show deep tendon reflexes 2+ in the patellar and tendo calcaneus tendons. Motor exam is 4 on a scale of 5 with right dorsiflexion, extension, quadriceps and hamstring flexion and 5/5 on the left. Peripheral pulses are 1+ posterior tibial. No peripheral edema is noted bilaterally. Lower extremities are warm and dry. SKIN: Shows warm and dry, good turgor. No edema. No sores, rashes or bruising throughout. Procedure: Procedure: Options were discussed with the patient. Patient old chart reviews her current medication regimen updated current review of systems updated today as well. We will proceed with a lumbar epidural steroid injection today with fluoroscopic guidance. Risks were discussed including but not limited to: Bleeding, infection, possibility of epidural hematoma and subsequent neurological compromise, dural puncture, headaches, spinal cord and/or nerve damage, side effects of steroid medication, and poor results regarding pain control. Patient understands and wished to proceed. Patient return to clinic in approximately 2 weeks for follow-up, was counseled as to return appointment, activity level, and side effect to be aware of. Medication Injected: Med Injected: Procedure is lumbar epidural steroid injection under local anesthetic using sterile prep and drape at the L4-5 level using C-arm fluoroscopic guidance in both AP and lateral views medications injected is 120 mg Depo-Medrol +10mL preservative-free normal saline and 2 mL contrast- condition at discharge is stable patient tolerated procedure well had no complications. Condition at Discharge: Condition at Discharge: Condition on discharge stable, patient tolerated procedure well had no complications. TONY TINSLEY MD Mar 30, 2021 11:46
--- NOTE | 2021-03-30 11:47 | PDOC4 ---
Procedure Note: ICD 10 Code: ICD 10 Code: M54.16 M51.36 M4 8.06 Procedure Note: Patient was consented for lumbar epidural steroid injection with fluoroscopic guidance. Risks were discussed including but not limited to: Bleeding, infection, possibility of epidural hematoma and subsequent neurological compromise, dural puncture, headaches, spinal cord and/or nerve damage, side effects of steroid medication, and poor results regarding pain control. Patient understands and wished to proceed. Procedure is lumbar epidural steroid injection under local anesthetic using guille rile prep and drape at the L4-5 level using C-arm fluoroscopic guidance in both AP and lateral views medications injected is 120 mg Depo-Medrol +10mL preservative-free normal saline and 2 mL contrast- condition at discharge is stable patient tolerated procedure well had no complications. TONY TINSLEY MD Mar 30, 2021 11:47
== END | disposition home or self-care (01) ==
LOC: PNCL 11:03
PROVIDERS: ATTEND Anesthesiology
DX: M51.16 Intervertebral disc disorders with radiculopathy, lumbar region (principal); M48.061 Spinal stenosis, lumbar region without neurogenic claudication; K21.9 Gastro-esophageal reflux disease without esophagitis; E78.00 Pure hypercholesterolemia, unspecified; F41.9 Anxiety disorder, unspecified; F32.9 Major depressive disorder, single episode, unspecified; Z90.710 Acquired absence of both cervix and uterus; Z90.49 Acquired absence of other specified parts of digestive tract; Z98.890 Other specified postprocedural states; Z79.899 Other long term (current) drug therapy; Z87.891 Personal history of nicotine dependence; Z72.89 Other problems related to lifestyle; Z88.5 Allergy status to narcotic agent; Z82.49 Family history of ischemic heart disease and other diseases of the circulatory system
CPT/HCPCS: 62323; J1030; J1040; Q9965